=== PATIENT | female | born 1990 | race Two or more races ===

== ENCOUNTER 2021-12-27 11:10 | Outpatient (CLI) | payer OTHER | END 2021-12-27 13:11 | disposition home or self-care (01) | LOC: PRENATAL 11:10 | PROVIDERS: ATTEND Obstetrics & Gynecology Maternal & Fetal Medicine | DX: O35.0XX0 Maternal care for (suspected) central nervous system malformation in fetus, not applicable or unspecified (principal); O35.3XX0 Maternal care for (suspected) damage to fetus from viral disease in mother, not applicable or unspecified; O34.219 Maternal care for unspecified type scar from previous cesarean delivery ==

== ENCOUNTER 2022-04-30 00:34 | Inpatient (IN) | payer OTHER ==
[~2022-04-30] VITALS: Ht 160 cm; Wt 99.8 kg
[2022-04-30] MEDS ORDERED: PRENATAL TABLE1 EAC6 (02:32)
== END 2022-05-03 14:30 | disposition home or self-care (01) | DRG 785 ==
LOC: OB/GYN 00:34 → LDR 00:34 → O/R 21:47 → OB/GYN 05-01 00:42
PROVIDERS: ADMIT Obstetrics & Gynecology Obstetrics; ATTEND Obstetrics & Gynecology Obstetrics
PROC: 0UB70ZZ Excision of Bilateral Fallopian Tubes, Open Approach (ICD-10-PCS; 2022-04-30)
PROC: 4A1HXCZ Monitoring of Products of Conception, Cardiac Rate, External Approach (ICD-10-PCS; 2022-04-30)
PROC: 10D00Z1 Extraction of Products of Conception, Low, Open Approach (ICD-10-PCS; principal; 2022-04-30 19:30)
DX: O34.211 Maternal care for low transverse scar from previous cesarean delivery (principal); O99.824 Streptococcus B carrier state complicating childbirth; Z30.2 Encounter for sterilization; Z3A.38 38 weeks gestation of pregnancy; Z20.822 Contact with and (suspected) exposure to COVID-19; Z37.0 Single live birth